=== PATIENT | female | born 1965 ===

== ENCOUNTER 2017-01-13 22:06 | Emergency (ER) | payer OTHER ==
[2017-01-13 22:18] VITALS: BP 116/77; PULSE 100; RESP 18; TEMP 98.2; O2SAT 100
[2017-01-13] MEDS ORDERED: CHLORPHENIRAMINE PO STA (22:32)
[2017-01-13] MEDS ORDERED: Albuterol 0.083% Inhal Sol (2.5 mg/3 mL) UD IH STA (22:32)
[2017-01-13] MEDS ORDERED: HYDROCODONE PO STA (22:32)
[2017-01-13] MEDS ORDERED: Promethazine/Cod 6.25mg-10mg/5ml Syr UD PO STA (22:37)
[2017-01-13] MEDS ORDERED: Promethazine/Cod 6.25mg-10mg/5ml Syr UD ONE (22:41)
[2017-01-13] MEDS ORDERED: Albuterol 0.083% Inhal Sol (2.5 mg/3 mL) UD ONE (22:42)
--- NOTE | 2017-01-13 23:17 | C.PDOC ---
History Of Present Illness Patient is a 51 year old female who presents to the ER with a complaint of a persistent cough for the past 7 days, associated with a subjective fever. Pt notes that she feels "lots of phlegm". (+) nasal congestion. Pt taking allergy medication without relief. No chest pain. Patient denies any vomiting or congestion. Pt evaluated by clinic today, not given any medication. 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 denies: Nasal Congestion, Vomiting Past Medical History Reviewed: Historical Data, Nursing Documentation, Vital Signs Vital Signs: Last Vital Signs Temp 98.2 F 01/13/17 22:15 Pulse 100 H 01/13/17 22:15 Resp 18 01/13/17 22:15 BP 116/77 01/13/17 22:15 Pulse Ox 100 01/13/17 23:58 - Medical History PMH: No Chronic Diseases Surgical History: Appendectomy Family History: States: Unknown Family Hx - Social History Hx Tobacco Use: No Hx Alcohol Use: No Hx Substance Use: No - Immunization History Hx Tetanus Toxoid Vaccination: No Hx Influenza Vaccination: No Hx Pneumococcal Vaccination: No Review Of Systems Constitutional: Positive for: Fever (Subjective) ENT: Negative for: Other (Congestion) Respiratory: Positive for: Cough Gastrointestinal: Negative for: Vomiting Physical Exam - Physical Exam Appears: Well, Non-toxic, No Acute Distress, Other (Persistent cough) Skin: Normal Color, Warm, Dry Head: Atraumatic, Normacephalic Eye(s): bilateral: Normal Inspection, EOMI Ear(s): Bilateral: Normal Nose: Normal Oral Mucosa: Moist Throat: Normal, No Erythema, No Exudate Neck: Normal ROM, Supple Lymphatic: Normal Exam Chest: Symmetrical Cardiovascular: Rhythm Regular Respiratory: Normal Breath Sounds, No Accessory Muscle Use, Other (Speaking in full sentences) Neurological/Psych: Oriented x3, Normal Speech, Other (No focal deficits) ED Course And Treatment O2 Sat by Pulse Oximetry: 100 (Room air) Pulse Ox Interpretation: Normal - Radiology CXR: Interpreted by Me, Viewed By Me CXR Interpretation: Yes: No Acute Disease Progress Note: Nebulizer treatment administered and CXR ordered. On reassessment, patient is resting comfortably, and is in no acute distress. Cough has improved. No SOB. Patient was instructed to follow up with physician/ clinic in 1-2 days for further evaluation. Will be given Rx for inhaler and cough medicine. Disposition - Disposition Disposition: HOME/ ROUTINE Disposition Time: 23:15 Condition: STABLE Additional Instructions: Vaya a gardner mdico o la clnica en 1-3 weaver sin falta, para mas evaluacin. [place] los medicamentos tacho indicado. Volver a la denis de emergencia en cualquier momento si los sntomas persisten o empeoran. Prescriptions: Albuterol HFA [Ventolin HFA 90 mcg/actuation (8 g)] 2 puff IH [id number] #1 puff Benzonatate [Tessalon Perle] 100 mg PO TID PRN #15 capsule PRN Reason: Cough Fluticasone Nasal [Flonase] 1 actuation NS DAILY #1 spr Instructions: Acute Bronchitis (ED) Forms: Work Excuse Print Language: HUNGARIAN - Clinical Impression Clinical Impression: Bronchitis, Upper respiratory infection - Scribe Statement The provider has reviewed the documentation as recorded by the Scribe Ron Lares All medical record entries made by the Scribe were at my direction and personally dictated by me. I have reviewed the chart and agree that the record accurately reflects my personal performance of the history, physical exam, medical decision making, and the department course for this patient. I have also personally directed, reviewed, and agree with the discharge instructions and disposition.
--- NOTE | 2017-01-14 08:37 | RAD ---
HISTORY: uri COMPARISON: 10/14/2016 TECHNIQUE: Chest PA and lateral FINDINGS: LUNGS: No active pulmonary disease. PLEURA: No significant pleural effusion identified. No pneumothorax apparent. CARDIOVASCULAR: Normal. OSSEOUS STRUCTURES: No significant abnormalities. VISUALIZED UPPER ABDOMEN: Normal. OTHER FINDINGS: None. IMPRESSION: No active disease.
== END 2017-01-13 23:25 | disposition home or self-care (01) ==
LOC: C.ER 22:06
DX: J06.9 Acute upper respiratory infection, unspecified (principal); J40 Bronchitis, not specified as acute or chronic

== ENCOUNTER → 2017-03-19 18:16 | Emergency (ER) | payer SELFPAY | END | disposition left against medical advice (07) | LOC: C.ER 18:16 | DX: R11.0 Nausea (principal); Z02.9 Encounter for administrative examinations, unspecified ==

== ENCOUNTER 2017-04-13 13:20 | Emergency (ER) | payer SELFPAY ==
[2017-04-13 13:28] VITALS: RESP 18
[2017-04-13] MEDS ORDERED: Sodium Chloride 0.9% 1,000 ML IV ONE (13:49)
--- NOTE | 2017-04-13 13:51 | C.PDOC ---
History Of Present Illness 51 year old female who presents to the ER with a complaint of headache, dizziness, and palpitations that began today, Denies chest pain, SOB, nausea, or vomiting. Time Seen by Provider: 04/13/17 13:42 Chief Complaint (Nursing): Palpitations History Per: Patient History/Exam Limitations: no limitations Onset/Duration Of Symptoms: Hrs Current Symptoms Are (Timing): Still Present Associated Symptoms: Headache. denies: Chest Pain, Dyspnea Quality Of Symptoms: Rapid Heart Rate Exacerbating Factor(s): Pos: None Recent travel outside of the [place]: No Past Medical History Reviewed: Historical Data, Nursing Documentation, Vital Signs Vital Signs: Last Vital Signs Temp 97.9 F 04/13/17 15:59 Pulse 58 L 04/13/17 15:59 Resp 18 04/13/17 15:59 BP 122/82 04/13/17 15:59 Pulse Ox 100 04/13/17 15:59 - Medical History PMH: No Chronic Diseases Surgical History: Appendectomy Family History: States: Unknown Family Hx - Social History Hx Tobacco Use: No Hx Alcohol Use: No Hx Substance Use: No - Immunization History Hx Tetanus Toxoid Vaccination: No Hx Influenza Vaccination: No Hx Pneumococcal Vaccination: No Review Of Systems Cardiovascular: Positive for: Palpitations. Negative for: Chest Pain Respiratory: Negative for: Shortness of Breath Gastrointestinal: Negative for: Nausea, Vomiting Neurological: Positive for: Headache, Dizziness Physical Exam - Physical Exam Appears: Non-toxic Skin: Normal Color, Warm, Dry Head: Atraumatic, Normacephalic Oral Mucosa: Moist Chest: Symmetrical, No Tenderness Cardiovascular: Rhythm Regular, No Murmur Respiratory: Normal Breath Sounds, No Rales, No Rhonchi, No Wheezing Gastrointestinal/Abdominal: Soft, No Tenderness Neurological/Psych: Oriented x3, Normal Speech, Normal Cognition ED Course And Treatment - Laboratory Results Result Diagrams: 04/13/17 14:35 04/13/17 14:35 Lab Interpretation: Normal ECG: Interpreted By Me ECG Rhythm: Sinus Rhythm ECG Interpretation: No Acute Changes Rate From EC O2 Sat by Pulse Oximetry: 99 (Room air) Pulse Ox Interpretation: Normal Progress Note: EKG, blood work, and urinalysis ordered. Reglan and IV fluids administered. Treated with toeadol 30 mg IV. On re-evaluation neuro intact, ambulating with steady gait Reassessment Condition: Improved Disposition Counseled Patient/Family Regarding: Studies Performed, Diagnosis, Need For Followup, Rx Given - Disposition Referrals: [facility] [Outside] [facility] [Outside] Disposition: HOME/ ROUTINE Disposition Time: 15:45 Condition: IMPROVED Additional Instructions: Follow up with clinic for further evaluation Instructions: Palpitations (ED), Vertigo (ED) Forms: [employer] (Yoruba) Print Language: HEBREW - POA Present On Arrival: None - Clinical Impression Clinical Impression: Palpitations, Vertigo - Scribe Statement The provider has reviewed the documentation as recorded by the Scribe Ron Lares All medical record entries made by the Barryibtamara were at my direction and personally dictated by me. I have reviewed the chart and agree that the record accurately reflects my personal performance of the history, physical exam, medical decision making, and the department course for this patient. I have also personally directed, reviewed, and agree with the discharge instructions and disposition.
[2017-04-13] MEDS ORDERED: Sodium Chloride 0.9% 1,000 ML ONE (14:22)
[2017-04-13 14:36] LABS: RBC URINE < 1 /hpf (0-3); URINE BILIRUBIN NEGATIVE (NEGATIVE); URINE BLOOD NEGATIVE (NEGATIVE); URINE COLOR Yellow (YELLOW); URINE GLUCOSE (UA) NORMAL (Normal); URINE KETONE NEGATIVE (NEGATIVE); URINE LEUKOCYTE ESTERASE NEG Leu/uL (Negative); URINE PROTEIN NEGATIVE (NEGATIVE); URINE UROBILINOGEN NORMAL mg/dL (0.2-1.0); WBC URINE < 1 /hpf (0-5)
[2017-04-13 14:46] LABS: BASO % 0.6 % (0.0-2.0); EOS % 0.8 % (0.0-4.0); HEMATOCRIT 34.5 % (34.0-47.0); LYMPH # 1.5 K/uL (1.0-4.3); LYMPH % 26.6 % (20.0-40.0); MEAN CORPUSCULAR HEMOGLOBIN 22.4 pg (27.0-31.0); MEAN CORPUSCULAR HGB CONC 31.7 g/dL (33.0-37.0); MEAN PLATELET VOLUME 7.2 fL (7.2-11.7); MONO # 0.3 K/uL (0.0-0.8); MONO % 6.3 % (0.0-10.0); RED CELL DISTRIBUTION WIDTH 21.7 % (11.5-14.5); WHITE BLOOD COUNT 5.5 K/uL (4.8-10.8)
[2017-04-13 14:48] LABS: MEAN CELL VOLUME 70.5 fL (81.0-99.0)
[2017-04-13 15:08] LABS: CHLORIDE 100 mmol/L (98-107)
[2017-04-13 15:09] LABS: POTASSIUM 4.1 mmol/L (3.6-5.2); SODIUM 140 mmol/L (132-148)
[2017-04-13 15:11] LABS: ALB/GLOB RATIO 1.1 (1.0-2.1); ALKALINE PHOSPHATASE 86 U/L (38-126); AST/SGOT 20 U/L (14-36); BILIRUBIN,TOTAL 0.4 mg/dL (0.2-1.3); BLOOD UREA NITROGEN 12 mg/dL (7-17); CARBON DIOXIDE 25 mmol/L (22-30); GFR AFRICAN-AMERICAN > 60; TOTAL PROTEIN 7.6 g/dL (6.3-8.3)
[2017-04-13 15:12] LABS: ALT/SGPT 24 U/L (9-52); CALCIUM 9.1 mg/dl (8.6-10.4); GLUCOSE,RANDOM 90 mg/dL (65-105)
[2017-04-13 15:59] VITALS: BP 122/82; PULSE 58; TEMP 97.9
[2017-04-13 16:14] VITALS: O2SAT 99
--- NOTE | 2017-04-16 07:12 | CARD ---
APPROVED REPORT EKG Measurement Heart [id number] <Conclusion> Normal sinus rhythm Minimal voltage criteria for LVH, may be normal variant Borderline ECG
== END 2017-04-13 16:25 | disposition home or self-care (01) ==
LOC: C.ER 13:20
DX: R00.2 Palpitations (principal); R42 Dizziness and giddiness
CPT/HCPCS: 80053; 81001; 83690; 85025; 96361; 96365; 96375; 99285; J1885; J2765; J7040

== ENCOUNTER 2018-10-02 12:28 | Emergency (ER) | payer MEDICAID, SELFPAY ==
[2018-10-02 12:36] VITALS: BMI 22.8
[2018-10-02 12:41] VITALS: RESP 18
[2018-10-02] MEDS ORDERED: Aluminum Hydroxide/Magnesium Hydroxide Susp (30 mL) PO STA (13:36)
[2018-10-02] MEDS ORDERED: Amoxicillin-Clav 875-125 mg Tab PO STA (13:36)
[2018-10-02] MEDS ORDERED: Aluminum Hydroxide/Magnesium Hydroxide Susp (30 mL) ONE (13:43)
[2018-10-02] MEDS ORDERED: Amoxicillin-Clav 875-125 mg Tab PO ONE (13:43)
--- NOTE | 2018-10-02 14:58 | C.PDOC ---
History Of Present Illness 53 year old female presents to the ED for evaluation of epigastric pain and burning sensation radiating to her throat which has occurred 4-5 times within this past month. Patient also reports intermittent headache over the past 5 months. Patient also complains of post-nasal drip. Patient denies fever, chills, and has not taken any medication for symptoms. Time Seen by Provider: 10/02/18 13:25 Chief Complaint (Nursing): Headache History Per: Patient History/Exam Limitations: no limitations Onset/Duration Of Symptoms: Days Current Symptoms Are (Timing): Still Present Quality: "Pain" Past Medical History Reviewed: Historical Data, Nursing Documentation, Vital Signs Vital Signs: Last Vital Signs Temp 98 F 10/02/18 12:37 Pulse 78 10/02/18 12:37 Resp 18 10/02/18 12:37 BP 117/83 10/02/18 12:37 Pulse Ox 99 10/02/18 12:37 - Medical History PMH: Anemia Surgical History: Appendectomy Family History: States: Unknown Family Hx - Social History Hx Tobacco Use: No Hx Alcohol Use: No Hx Substance Use: No - Immunization History Hx Tetanus Toxoid Vaccination: No Hx Influenza Vaccination: No Hx Pneumococcal Vaccination: No Review Of Systems Constitutional: Negative for: Fever, Chills Gastrointestinal: Positive for: Abdominal Pain (epigastric ) Neurological: Positive for: Headache Physical Exam - Physical Exam Appears: Non-toxic, No Acute Distress Skin: Normal Color, Warm, Dry Head: Tenderness (sinus ) Eye(s): bilateral: Normal Inspection Ear(s): Bilateral: Normal Nose: Normal, No Discharge Oral Mucosa: Moist Throat: Normal, No Erythema, No Exudate Neck: Supple Chest: Symmetrical, No Deformity, No Tenderness Cardiovascular: Rhythm Regular, No Murmur Respiratory: Normal Breath Sounds, No Rales, No Rhonchi, No Wheezing Extremity: Normal ROM, Capillary Refill (less than 2 seconds ) Neurological/Psych: Oriented x3, Normal Speech, Normal Cognition ED Course And Treatment O2 Sat by Pulse Oximetry: 99 (on RA ) Pulse Ox Interpretation: Normal Medical Decision Making Medical Decision Making: Progress: Tylenol PO, Maalox PO, Augmentin PO, Pepcid PO and Motrin PO given. Disposition Counseled Patient/Family Regarding: Diagnosis, Need For Followup, Rx Given - Disposition Referrals: [facility] [Outside] Disposition: HOME/ ROUTINE Disposition Time: 14:55 Condition: STABLE Prescriptions: Aluminum Hydroxide/Magnesium H [Maalox 30 ml] 30 ml PO BID #1 bottle Amoxicillin/Clavulanate [Augmentin 875 MG-125 MG] 1 tab PO BID #14 tab Famotidine [Pepcid] 20 mg PO BID #30 tab Ibuprofen [Motrin] 600 mg PO TID #20 tab Instructions: Sinusitis, Adult (DC), Gastritis (DC) Forms: Gen Discharge Inst Scottish, [employer] (Scottish), Work Excuse Print Language: MICRONESIAN - POA Present On Arrival: None - Clinical Impression Clinical Impression: Headache, Sinusitis - Scribe Statement The provider has reviewed the documentation as recorded by the Scribe (Ester Rodriguez) Provider Attestation: All medical record entries made by the Scribe were at my direction and personally dictated by me. I have reviewed the chart and agree that the record accurately reflects my personal performance of the history, physical exam, medical decision making, and the department course for this patient. I have also personally directed, reviewed, and agree with the discharge instructions and disposition.
[2018-10-02 15:05] VITALS: BP 135/96; PULSE 75; TEMP 98.1
[2018-10-02 16:22] VITALS: O2SAT 99
== END 2018-10-02 15:05 | disposition home or self-care (01) ==
LOC: C.ER 12:28
DX: J32.9 Chronic sinusitis, unspecified (principal); R51 Headache

== ENCOUNTER 2018-10-04 15:00 | Emergency (ER) | payer MEDICAID ==
[2018-10-04 15:00] VITALS: BMI 22.8
[2018-10-04 15:14] VITALS: RESP 18
--- NOTE | 2018-10-04 15:59 | C.PDOC ---
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 Patient states she was at work when the symptoms started and had difficulty breathing and felt like something was stuck in her throat. She denies any chest pain, chills, vomiting, fever, or other associated symptoms. Patient was seen here on 09/25/18 for post nasal drainage and reflux and was prescribed Tylenol, Augmentin, Maalox, Pepcid, and Motrin, but she states she developed itching after taking the medications. Time Seen by Provider: 10/04/18 15:29 Chief Complaint (Nursing): Shortness Of Breath History Per: Patient History/Exam Limitations: no limitations Onset/Duration Of Symptoms: Hrs Current Symptoms Are (Timing): Still Present Past Medical History Reviewed: Historical Data, Nursing Documentation, Vital Signs Vital Signs: Last Vital Signs Temp 98.4 F 10/04/18 15:06 Pulse 72 10/04/18 15:06 Resp 18 10/04/18 15:06 BP 150/93 H 10/04/18 15:06 Pulse Ox 99 10/04/18 15:06 - Medical History PMH: Anemia, Gastritis Surgical History: Appendectomy Family History: States: No Known Family Hx - Social History Hx Tobacco Use: No Hx Alcohol Use: No Hx Substance Use: No - Immunization History Hx Tetanus Toxoid Vaccination: No Hx Influenza Vaccination: No Hx Pneumococcal Vaccination: No Review Of Systems Except As Marked, All Systems Reviewed And Found Negative. Constitutional: Negative for: Fever, Chills ENT: Positive for: Nose Congestion, Other (sore throat) Cardiovascular: Negative for: Chest Pain, Palpitations Respiratory: Positive for: Cough Gastrointestinal: Negative for: Vomiting, Abdominal Pain Genitourinary: Negative for: Dysuria Skin: Negative for: Rash Physical Exam - Physical Exam Appears: Non-toxic, No Acute Distress Skin: Warm, Dry, No Rash Head: Atraumatic, Normacephalic Eye(s): bilateral: Normal Inspection Ear(s): Bilateral: Normal Nose: Other (Swelling of turbinates bilaterally, left greater than right) Oral Mucosa: Moist, Other ([place]) Throat: Normal, No Erythema, No Exudate, Other (uvula midline) Neck: Supple Cardiovascular: Rhythm Regular, No Murmur Respiratory: Normal Breath Sounds, No Rales, No Rhonchi, No Wheezing Gastrointestinal/Abdominal: Soft, No Tenderness Extremity: Bilateral: Atraumatic, Normal Color And Temperature, Normal ROM Neurological/Psych: Oriented x3, Normal Speech ED Course And Treatment O2 Sat by Pulse Oximetry: 99 (RA) Pulse Ox Interpretation: Normal Medical Decision Making Medical Decision Making: Plan: --Claritin PO Disposition Counseled Patient/Family Regarding: Diagnosis, Need For Followup - Disposition Referrals: [facility] [Outside] [facility] [Outside] Disposition: HOME/ ROUTINE Disposition Time: 16:34 Condition: STABLE Additional Instructions: KELECHI GONZALEZ, thank you for letting us take care of you today. Your provider was Amber aP MD and you were treated for ASTHMA. The emergency medical care you received today was directed at your acute symptoms. If you were prescribed any medication, please fill it and take as directed. It may take several days for your symptoms to resolve. Return to the Emergency Department if your symptoms worsen, do not improve, or if you have any other problems. Please contact your doctor or call one of the physicians/clinics you have been referred to that are listed on the Patient Visit Information form that is included in your discharge packet. Bring any paperwork you were given at discharge with you along with any medications you are taking to your follow up visit. Our treatment cannot replace ongoing medical care by a primary care provider outside of the emergency department. Thank you for allowing the [facility] team to be part of your care today. If you had an X-Ray or CT scan: A Radiologist will review the ED reading if any change in treatment is needed we will contact you. If you had a blood, urine, or wound culture: It will take several days for the results, if any change in treatment is needed we will contact you. If you had an STI test: It will take 48 hours for the results. Please call after 1 week if you have not heard back. Prescriptions: Loratadine/Pseudoephedrine [Claritin-D 24 Hour Tablet] 1 each PO DAILY #30 tab.er.24h Instructions: Acid Reflux (Gastroesophageal Reflux Disease), Adult (DC), Rhinosinusitis (ED) Forms: Gen Discharge Inst Amharic, [employer] (Amharic), Work Excuse Print Language: FAROESE - POA Present On Arrival: None - Clinical Impression Clinical Impression: Nasal congestion, Post-nasal drainage, Acid reflux - Scribe Statement The provider has reviewed the documentation as recorded by the Doris Mendoza Provider Attestation: All medical record entries made by the Barryibtamara were at my direction and personally dictated by me. I have reviewed the chart and agree that the record accurately reflects my personal performance of the history, physical exam, medical decision making, and the department course for this patient. I have also personally directed, reviewed, and agree with the discharge instructions and disposition.
[2018-10-04 16:43] VITALS: BP 129/84; PULSE 65; TEMP 97.9
[2018-10-08 05:49] VITALS: O2SAT 99
== END 2018-10-04 16:57 | disposition home or self-care (01) ==
LOC: C.ER 15:00
DX: R09.81 Nasal congestion (principal); R09.82 Postnasal drip; K21.9 Gastro-esophageal reflux disease without esophagitis

== ENCOUNTER 2018-11-09 16:50 | Emergency (ER) | payer MEDICAID ==
[2018-11-09 17:00] VITALS: BMI 25.3
[2018-11-09 17:25] VITALS: O2SAT 100
[2018-11-09 18:02] LABS: BASO % 0.4 % (0.0-2.0); EOS % 0.3 % (0.0-4.0); LYMPH # 1.2 K/uL (1.0-4.3); MEAN CORPUSCULAR HEMOGLOBIN 28.3 pg (27.0-31.0); MEAN CORPUSCULAR HGB CONC 32.8 g/dL (33.0-37.0); MONO # 0.4 K/uL (0.0-0.8); MONO % 4.9 % (0.0-10.0); NEUT % 80.4 % (50.0-75.0); NRBC % 0.1 % (0.0-2.0); RBC 4.94 Mil/uL (3.80-5.20); RED CELL DISTRIBUTION WIDTH 13.6 % (11.5-14.5); WHITE BLOOD COUNT 8.7 K/uL (4.8-10.8)
[2018-11-09 18:03] LABS: MEAN CELL VOLUME 86.3 fL (81.0-99.0)
[2018-11-09 18:08] LABS: ALB/GLOB RATIO 1.3 (1.0-2.1); ALBUMIN 4.5 g/dL (3.5-5.0); ALT/SGPT 15 U/L (9-52); AST/SGOT 29 U/L (14-36); BLOOD UREA NITROGEN 15 mg/dL (7-17); CALCIUM 9.4 mg/dl (8.6-10.4); GFR NON-AFRICAN AMERICAN > 60
[2018-11-09] MEDS ORDERED: DiphenhydrAMINE 50 mg/ml Inj IVP STA (18:10)
[2018-11-09] MEDS ORDERED: MethylPREDNISolone 40 mg Vial IVP STA (18:11)
[2018-11-09] MEDS ORDERED: Sodium Chloride 0.9% 1,000 ML IV ONE (18:12)
[2018-11-09 18:22] LABS: B-TYPE NATRIURETIC PEPTIDE 42.6 pg/mL (0-900)
--- NOTE | 2018-11-09 18:26 | C.PDOC ---
History Of Present Illness 53 y/o female presents to the ED for evaluation of chest pain which began at around 1500 today. Patient states her pain is associated with throat closing sensation, and facial redness. Patient states she was recently diagnosed with H. Pylori and has been taking antibiotics for the past 4-5 days. Patient took eight tablets of antibiotics earlier today. She denies nausea, vomiting and abdominal pain at this time. <Judi Welsh - Last Filed: 11/09/18 19:03> History Per: Patient History/Exam Limitations: no limitations Onset/Duration Of Symptoms: Hrs Current Symptoms Are (Timing): Still Present Quality: "Pain" <Judi Welsh - Last Filed: 11/09/18 19:03> <Jean-Pierre Richardson - Last Filed: 11/09/18 19:44> Time Seen by Provider: 11/09/18 17:40 Chief Complaint (Nursing): Chest Pain Past Medical History Reviewed: Historical Data, Nursing Documentation, Vital Signs Vital Signs: Last Vital Signs Temp 97.8 F 11/09/18 17:17 Pulse 107 H 11/09/18 17:17 Resp 20 11/09/18 17:17 BP 148/105 H 11/09/18 17:17 Pulse Ox 100 11/09/18 17:17 - Medical History PMH: Anemia, Gastritis, Hypercholesterolemia Surgical History: Appendectomy Family History: States: Unknown Family Hx - Social History Hx Tobacco Use: No Hx Alcohol Use: No Hx Substance Use: No - Immunization History Hx Tetanus Toxoid Vaccination: No Hx Influenza Vaccination: No Hx Pneumococcal Vaccination: No <Judi Welsh - Last Filed: 11/09/18 19:03> Vital Signs: Last Vital Signs Temp 97.8 F 11/09/18 17:17 Pulse 107 H 11/09/18 17:17 Resp 20 11/09/18 17:17 BP 148/105 H 11/09/18 17:17 Pulse Ox 100 11/09/18 19:04 <Jean-Pierre Richardson - Last Filed: 11/09/18 19:44> Review Of Systems ENT: Positive for: Other (throat tightness ) Cardiovascular: Positive for: Chest Pain Gastrointestinal: Negative for: Nausea, Vomiting Skin: Positive for: Other (facial redness ) <Judi Welsh - Last Filed: 11/09/18 19:03> Physical Exam - Physical Exam Appears: Non-toxic, No Acute Distress Skin: Normal Color, Warm, Dry Head: Atraumatic, Normacephalic Eye(s): bilateral: Normal Inspection Oral Mucosa: Moist Throat: Normal, No Erythema, No Exudate Neck: Supple Chest: Symmetrical, No Deformity, No Tenderness Cardiovascular: Rhythm Regular, No Murmur Respiratory: Normal Breath Sounds, No Rales, No Rhonchi, No Wheezing Extremity: Normal ROM, Capillary Refill (less than 2 seconds ) Neurological/Psych: Oriented x3, Normal Speech, Normal Cognition <BlaiseJudi Reji - Last Filed: 11/09/18 19:03> ED Course And Treatment - Laboratory Results Result Diagrams: 11/09/18 17:51 11/09/18 17:51 Lab Results: Troponin I < 0.0120 ng/mL (0.00-0.120) 11/09/18 17:51 NT-Pro-B Natriuret Pep 42.6 pg/mL (0-900) 11/09/18 17:51 Total Bilirubin 0.5 mg/dL (0.2-1.3) 11/09/18 17:51 AST 29 U/L (14-36) 11/09/18 17:51 ALT 15 U/L (9-52) 11/09/18 17:51 Alkaline Phosphatase 111 U/L (38-126) 11/09/18 17:51 Total Protein 8.2 g/dL (6.3-8.3) 11/09/18 17:51 Albumin 4.5 g/dL (3.5-5.0) 11/09/18 17:51 Globulin 3.6 gm/dL (2.2-3.9) 11/09/18 17:51 Albumin/Globulin Ratio 1.3 (1.0-2.1) 11/09/18 17:51 ECG: Interpreted By Me, Viewed By Me ECG Rhythm: Sinus Tachycardia Rate From EC O2 Sat by Pulse Oximetry: 100 (on RA) Pulse Ox Interpretation: Normal <BlaiseJudi C - Last Filed: 11/09/18 19:03> - Laboratory Results Result Diagrams: 11/09/18 17:51 11/09/18 17:51 Lab Results: PT 11.9 SECONDS (9.7-12.2) 11/09/18 18:49 INR 1.1 11/09/18 18:49 APTT 35 SECONDS (21-34) H 11/09/18 18:49 Troponin I < 0.0120 ng/mL (0.00-0.120) 11/09/18 17:51 NT-Pro-B Natriuret Pep 42.6 pg/mL (0-900) 11/09/18 17:51 Total Bilirubin 0.5 mg/dL (0.2-1.3) 11/09/18 17:51 AST 29 U/L (14-36) 11/09/18 17:51 ALT 15 U/L (9-52) 11/09/18 17:51 Alkaline Phosphatase 111 U/L (38-126) 11/09/18 17:51 Total Protein 8.2 g/dL (6.3-8.3) 11/09/18 17:51 Albumin 4.5 g/dL (3.5-5.0) 11/09/18 17:51 Globulin 3.6 gm/dL (2.2-3.9) 11/09/18 17:51 Albumin/Globulin Ratio 1.3 (1.0-2.1) 11/09/18 17:51 Pulse Ox Interpretation: Normal Reevaluation Time: 19:42 Reassessment Condition: Improved <Jean-Pierre Richardson - Last Filed: 11/09/18 19:44> Medical Decision Making Medical Decision Making: Progress: Bloodwork, CXR, EKG ordered and reviewed. Benadryl IVP, Pepcid IVP, Solu-Mdrol IVP and IV Fluids given. <Judi Welsh - Last Filed: 11/09/18 19:03> Disposition - Disposition Disposition Time: 19:03 <Judi Welsh - Last Filed: 11/09/18 19:03> Counseled Patient/Family Regarding: Studies Performed, Diagnosis, Need For Followup <Jean-Pierre Richardson - Last Filed: 11/09/18 19:44> - Disposition Referrals: [facility] [Outside] [facility] [Outside] Condition: STABLE Additional Instructions: Por favor regrese si los sntomas recurren. Instructions: Chest Pain (DC) Forms: [employer] ([place] Islander) Print Language: SYRIAC - Clinical Impression Clinical Impression: Chest discomfort - PA / MOUNTER SOUSAPHONES / Resident Statement MD/DO has reviewed & agrees with the documentation as recorded. - Scribe Statement The provider has reviewed the documentation as recorded by the Scribe (Ester Rodriguez) All medical record entries made by the Scribe were at my direction and personally dictated by me. I have reviewed the chart and agree that the record accurately reflects my personal performance of the history, physical exam, medical decision making, and the department course for this patient. I have also personally directed, reviewed, and agree with the discharge instructions and d isposition. <Judi Welsh C - Last Filed: 11/09/18 19:03> Physician Patient Turnover Patient Signed Over To: Jean-Pierre Richardson Handoff Comments: pending labs and re-evaluation <Judi Welsh C - Last Filed: 11/09/18 19:03>
[2018-11-09] MEDS ORDERED: Sodium Chloride 0.9% 1,000 ML ONE (18:27)
[2018-11-09] MEDS ORDERED: MethylPREDNISolone 40 mg Vial ONE (18:27)
[2018-11-09] MEDS ORDERED: DiphenhydrAMINE 50 mg/ml Inj ONE (18:27)
[2018-11-09 19:00] LABS: INR 1.1; PROTHROMBIN TIME 11.9 SECONDS (9.7-12.2)
--- NOTE | 2018-11-09 19:07 | RAD ---
Date of service: 11/09/2018 PROCEDURE: CHEST RADIOGRAPH, 1 VIEW HISTORY: chest pain COMPARISON: 01/13/2017 FINDINGS: LUNGS: Clear. PLEURA: No pneumothorax or pleural fluid seen. CARDIOVASCULAR: No aortic atherosclerotic calcification present. No radiographic findings to suggest acute or significant cardiovascular disease. OSSEOUS STRUCTURES: No significant abnormalities. VISUALIZED UPPER ABDOMEN: Normal. OTHER FINDINGS: None. IMPRESSION: No active disease. No acute/significant interval changes.
[2018-11-09 19:47] VITALS: BP 141/86; PULSE 80; RESP 16; TEMP 98
--- NOTE | 2018-11-10 16:50 | CARD ---
APPROVED REPORT Date of service: 11/09/2018 EKG Measurement Heart [id number] <Conclusion> Sinus tachycardia Minimal voltage criteria for LVH, may be normal variant Borderline ECG
== END 2018-11-09 19:56 | disposition home or self-care (01) ==
LOC: C.ER 16:50
DX: R07.89 Other chest pain (principal)
CPT/HCPCS: 71045; 80053; 82948; 83880; 84484; 85025; 85610; 85730; 93005; 96361; 96374; 96375; 99285; J1200; J2920; J7030

== ENCOUNTER 2018-11-10 20:32 | Emergency (ER) | payer MEDICAID ==
[2018-11-10 20:49] VITALS: BMI 27.6
--- NOTE | 2018-11-10 20:59 | C.PDOC ---
History Of Present Illness 53 year old female presents to the ED c/o SOB, throat discomfort and generalized not feeling well sensation. Patient is unable to pinpoint any actual symptom. Patient was seen in the ED yesterday for similar complains including some throat tightness after she started taking triple antibiotics for h pylori. Patient denies fever, chills, headache, nausea, vomit, diarrhea, rash, recent travel, sick contacts. Time Seen by Provider: 11/10/18 20:59 Chief Complaint (Nursing): Chest Pain History Per: Patient History/Exam Limitations: no limitations Onset/Duration Of Symptoms: Days Current Symptoms Are (Timing): Still Present Quality: Tightness Recent travel outside of the [place]: No Additional History Per: Patient Past Medical History Reviewed: Historical Data, Nursing Documentation, Vital Signs Vital Signs: Last Vital Signs Temp 98.2 F 11/10/18 20:49 Pulse 86 11/10/18 20:49 Resp 19 11/10/18 20:49 BP 153/96 H 11/10/18 20:49 Pulse Ox 98 11/10/18 20:49 - Medical History PMH: Anemia, Gastritis, Hypercholesterolemia Surgical History: Appendectomy Family History: States: Unknown Family Hx - Social History Hx Tobacco Use: No Hx Alcohol Use: No Hx Substance Use: No - Immunization History Hx Tetanus Toxoid Vaccination: No Hx Influenza Vaccination: No Hx Pneumococcal Vaccination: No Review Of Systems Constitutional: Positive for: Malaise. Negative for: Fever, Chills ENT: Positive for: Throat Pain. Negative for: Nose Discharge, Nose Congestion Cardiovascular: Negative for: Chest Pain Respiratory: Positive for: Shortness of Breath. Negative for: Cough Gastrointestinal: Negative for: Nausea, Vomiting, Abdominal Pain Skin: Negative for: Rash Neurological: Negative for: Weakness, Numbness, Headache, Dizziness Physical Exam - Physical Exam Appears: Non-toxic, No Acute Distress Skin: Warm, Dry Head: Normacephalic Eye(s): bilateral: Normal Inspection Ear(s): Bilateral: Normal Oral Mucosa: Moist Tongue: Normal Appearing Lips: Normal Appearing Throat: No Erythema, No Exudate, Other (? mild erythematous uvula) Neck: Supple Chest: Symmetrical Cardiovascular: Rhythm Regular Respiratory: No Rales, No Rhonchi, No Wheezing Gastrointestinal/Abdominal: Soft, No Tenderness, No Guarding, No Rebound Extremity: Bilateral: Atraumatic, Normal Color And Temperature, Normal ROM Neurological/Psych: Oriented x3, Normal Speech, Normal Cognition Gait: Steady ED Course And Treatment - Laboratory Results Result Diagrams: 11/10/18 21:22 11/10/18 21:22 ECG: Interpreted By Me, Viewed By Me ECG Rhythm: Sinus Rhythm (87), Nonspecific Changes O2 Sat by Pulse Oximetry: 98 (ON RA) Pulse Ox Interpretation: Normal - Radiology CXR: Interpreted by Me, Viewed By Me - CT Scan/US CT head Other Rad Studies (CT/US): Read By Radiologist, Radiology Report Reviewed CT/US Interpretation: EXAM: CT Head without Intravenous Contrast. CLINICAL HISTORY: Headache. TECHNIQUE: Axial computed tomography images of the head/brain without intravenous contrast. 0.00 mGy-cm. COMPARISON: None provided. FINDINGS: BRAIN. No acute intraparenchymal hemorrhage. No mass lesion. No CT evidence for acute territorial infarct. No midline shift or extra- axial collections. VENTRICLES: No hydrocephalus. ORBITS: The orbits are unremarkable. SINUSES AND MASTOIDS: The paranasal sinuses and mastoid air cells are clear. BONES: No fracture. SOFT TISSUES: Unremarkable. IMPRESSION: No acute intracranial abnormality. . Electronically signed on Nov 10, 2018 10:56:18 PM EST by: Patrick Garcia M.D., KENJI Certified By ABR & CBCCT. Fellowship Trained MRI and CT Specialist CT chest Other Rad Studies (CT/US): Read By Radiologist, Radiology Report Reviewed CT/US Interpretation: EXAM: CTA Chest with Intravenous Contrast for Pulmonary Embolism. CLINICAL HISTORY: Chest pain. r/o pe. TECHNIQUE: Axial CTA images of the chest with intravenous contrast using a pulmonary embolism protocol. Reconstructed images were created and reviewed. 0.00 mGy-cm. CONTRAST: With; 100MLS VISI 320 was administered without incident. COMPARISON: None provided. FINDINGS: PULMONARY ARTERIES. No evidence of central or segmental pulmonary embolism is seen. AORTA. There is no evidence for aneurysm or dissection of the thoracic aorta. Minor atheromatous plaquing is seen within the aortic arch. LUNGS. The lungs appear clear. PLEURAL SPACES. No pneumothorax evident. No pleural effusions. HEART. Heart size is within normal limits. No pericardial effusion. LYMPH NODES. No lymphadenopathy is evident. BONES. No focal osseous abnormality or acute fracture. UPPER ABDOMEN. Images of the upper abdomen demonstrate reflux esophagitis at the esophagogastric junction. IMPRESSION: 1. Evidence of reflux esophagitis. 2. Minor atheromatous plaquing is noted within the aortic arch. 3. Otherwise, unremarkable pulmonary embolism protocol CTA of the chest. . Electronically signed on Nov 10, 2018 11:08:28 PM EST by: Patrick Garcia M.D., KENJI Certified By ABR & CBCCT. Fellowship Trained MRI and CT Specialist CT neck Other Rad Studies (CT/US): Read By Radiologist, Radiology Report Reviewed CT/US Interpretation: EXAM: CT Neck without Intravenous Contrast. CLINICAL HISTORY: THROAT PAIN. TECHNIQUE: Axial computed tomography images of the neck without intravenous contrast. Sagittal and coronal reformatted images were generated. 0.00 mGy-cm. CONTRAST: Without. COMPARISON: None provided. FINDINGS: PHARYNX: There is subtle focal mucosal edematous thickening of the uvula suggestive of uvulitis. This image finding is demonstrated in the axial series 2; specifically image #24. Otherwise, unremarkable appearance of the nasopharynx, oropharynx and hypopharynx. No pharyngeal mucosal based mass lesions. LARYNX: The larynx is unremarkable. The epiglottis appears normal. RETROPHARYNGEAL SPACE: No retropharyngeal soft tissue swelling or gas. SALIVARY GLANDS: No salivary gland abnormality evident. Unremarkable appearance of the parotid, submandibular, and sublingual glands. LYMPH NODES: No significant lymphadenopathy. THYROID: Unremarkable appearance of the thyroid. No thyroid nodule seen. BONES: No aggressive appearing osseous lesion. No acute osseous abnormality. Mild degenerative arthritis is noted within the atlanto-dens interval. IMPRESSION: 1. Evidence of uvulitis as described above. 2. 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 . Electronically signed on Nov 10, 2018 11:24:07 PM EST by: Patrick Garcia M.D., KENJI Certified By ABR & CBCCT. Fellowship Trained MRI and CT Specialist Progress Note: Plan: - Labs. - VBG. - EKG Reevaluation Time: 23:31 Reassessment Condition: Improved Disposition Counseled Patient/Family Regarding: Studies Performed, Diagnosis, Need For Followup, Rx Given - Disposition Referrals: Kameron Nava MD [IM] - Disposition: HOME/ ROUTINE Disposition Time: 20:59 Condition: FAIR Additional Instructions: Por favor regrese si los sntomas recurren. Prescriptions: Pantoprazole Sodium [Protonix] 40 mg PO DAILY #15 ect Prednisone [Deltasone] 20 mg PO DAILY #5 tablet Instructions: Acid Reflux (Gastroesophageal Reflux Disease), Adult (DC) Forms: [employer] Connect (Tajik) Print Language: SWEDISH - Clinical Impression Clinical Impression: GERD (gastroesophageal reflux disease), Esophagitis, Uvulitis - Scribe Statement The provider has reviewed the documentation as recorded by the Scribtamara Peraza All medical record entries made by the Barryibtamara were at my direction and personally dictated by me. I have reviewed the chart and agree that the record accurately reflects my personal performance of the history, physical exam, medical decision making, and the department course for this patient. I have also personally directed, reviewed, and agree with the discharge instructions and disposition.
[2018-11-10 21:26] LABS: BASO % 0.2 % (0.0-2.0); HEMOGLOBIN 13.8 g/dL (11.0-16.0); LYMPH # 1.6 K/uL (1.0-4.3)
[2018-11-10 21:32] LABS: EOS % 0.2 % (0.0-4.0); LYMPH % 10.9 % (20.0-40.0); MEAN CELL VOLUME 86.1 fL (81.0-99.0); MEAN CORPUSCULAR HEMOGLOBIN 28.4 pg (27.0-31.0); MEAN PLATELET VOLUME 8.4 fL (7.2-11.7); MONO # 0.8 K/uL (0.0-0.8); MONO % 5.3 % (0.0-10.0); NEUT # 11.9 K/uL (1.8-7.0); NEUT % 83.4 % (50.0-75.0); NRBC % 0.1 % (0.0-2.0); RBC 4.84 Mil/uL (3.80-5.20); RED CELL DISTRIBUTION WIDTH 13.9 % (11.5-14.5)
[2018-11-10 21:34] LABS: WHITE BLOOD COUNT 14.4 K/uL (4.8-10.8)
[2018-11-10 21:42] LABS: ALB/GLOB RATIO 1.3 (1.0-2.1); ALBUMIN 4.8 g/dL (3.5-5.0); ALT/SGPT 11 U/L (9-52); AST/SGOT 40 U/L (14-36); BLOOD UREA NITROGEN 17 mg/dL (7-17); CALCIUM 9.9 mg/dl (8.6-10.4); GFR NON-AFRICAN AMERICAN > 60
[2018-11-10 21:43] LABS: PROTHROMBIN TIME 11.2 SECONDS (9.7-12.2)
[2018-11-10 21:51] LABS: B-TYPE NATRIURETIC PEPTIDE 220 pg/mL (0-900)
[2018-11-10 22:07] LABS: VENOUS BLOOD GAS BASE EXCESS -2.1 mmol/L (0.0-2.0); VENOUS BLOOD GAS PCO2 29 mmHg (40-60); VENOUS BLOOD GAS PO2 100 mm/Hg (30-55); VENOUS BLOOD PH 7.46 (7.32-7.43)
[2018-11-10 23:22] VITALS: BP 146/92; PULSE 65; RESP 16
[2018-11-10 23:34] VITALS: O2SAT 98
[2018-11-10 23:55] VITALS: TEMP 98.4
--- NOTE | 2018-11-11 11:10 | CT ---
Date of service: 11/10/2018 PROCEDURE: CT HEAD WITHOUT CONTRAST. HISTORY: headache COMPARISON: 07/09/2016 TECHNIQUE: Axial computed tomography images were obtained through the head/brain without intravenous contrast. Radiation dose: Total exam DLP = 1057.66 mGy-cm. This CT exam was performed using one or more of the following dose reduction techniques: Automated exposure control, adjustment of the mA and/or kV according to patient size, and/or use of iterative reconstruction technique. FINDINGS: HEMORRHAGE: No intracranial hemorrhage. BRAIN: No mass effect or edema. No atrophy or chronic microvascular ischemic changes. VENTRICLES: Unremarkable. No hydrocephalus. CALVARIUM: Unremarkable. PARANASAL SINUSES: Unremarkable as visualized. No significant inflammatory changes. MASTOID AIR CELLS: Unremarkable as visualized. No inflammatory changes. OTHER FINDINGS: None. IMPRESSION: Normal CT of the Head. No intracranial mass, hemorrhage or evidence of acute infarct. The preliminary findings for this examination were reported by [facility] at 10:56 p.m. on 11/10/2018. There is concurrence of this report with the preliminary findings.
--- NOTE | 2018-11-11 16:11 | CT ---
Date of service: 11/10/2018 PROCEDURE: CT Chest with contrast (Pulmonary Angiogram) HISTORY: elevated d-dimer COMPARISON: None available. TECHNIQUE: Axial computed tomography images were obtained of the chest in the pulmonary arterial phase of enhancement. Coronal and sagittal reformatted images were created and reviewed. Intravenous contrast dose: 100 mL Visipaque 320 Radiation dose: Total exam DLP = 398.82 mGy-cm. This CT exam was performed using one or more of the following dose reduction techniques: Automated exposure control, adjustment of the mA and/or kV according to patient size, and/or use of iterative reconstruction technique. FINDINGS: PULMONARY ARTERIES: Unremarkable. No pulmonary embolism. AORTA: No acute findings. No thoracic aortic aneurysm. There is atherosclerotic calcification of the thoracic aorta. LUNGS: Unremarkable. No nodule, mass or pulmonary consolidation. PLEURAL SPACES: Unremarkable. No effusion or pneumothorax. HEART: Unremarkable. No cardiomegaly. No significant pericardial effusion. LYMPH NODES: No lymphadenopathy. BONES, CHEST WALL: Unremarkable. No fracture or destructive lesion OTHER FINDINGS: Small hiatal hernia. IMPRESSION: No evidence of pulmonary embolism. No pulmonary infiltrate or pleural effusion. Incidental small hiatal hernia. The preliminary findings for this examination were reported by [facility] at 11:08 p.m. on 11/10/2018. There is concurrence of this report with the preliminary findings.
--- NOTE | 2018-11-11 16:27 | CT ---
Date of service: 11/10/2018 PROCEDURE: CT NECK WITH CONTRAST HISTORY: throat pain COMPARISON: None available. TECHNIQUE: CT of the neck with intravenous contrast. Coronal and sagittal reformats generated. Intravenous contrast dose: 100 mL Visipaque 320 Radiation dose: Total exam DLP = 481.13 mGy-cm. This CT exam was performed using one or more of the following dose reduction techniques: Automated exposure control, adjustment of the mA and/or kV according to patient size, and/or use of iterative reconstruction technique. FINDINGS: NASOPHARYNX: Unremarkable. SUPRAHYOID NECK: Oropharynx is significant for central low attenuation within the uvula. There is no associated enhancement. This is unlikely to represent an acute inflammatory process. Nevertheless, consistent with nonspecific edema. The epiglottis and parapharyngeal spaces are unremarkable. INFRAHYOID NECK: , unremarkable larynx, hypopharynx, and supraglottic space. Vocal cords intact. MASS: None. GLANDS: Parotid and submandibular glands unremarkable. Heterogeneous thyroid gland. Possible nodules. Correlate with thyroid ultrasound examination. LYMPH NODES: Normal. No lymphadenopathy. CERVICAL SPINE: No fracture or focal lesion. VASCULAR STRUCTURES: Unremarkable. OTHER FINDINGS: None. IMPRESSION: Possible nonspecific edema of the uvula. No evidence of active inflammation. Heterogeneous thyroid gland. Possible multinodular gland. Correlate with thyroid ultrasound examination. The preliminary findings for this examination were reported by [facility] at 11:24 p.m. on 11/10/2018. There is discordance of this report with the preliminary findings. Possible multinodular thyroid was not described in the preliminary report of this examination.
== END 2018-11-10 23:55 | disposition home or self-care (01) ==
LOC: C.ER 20:32
DX: K21.0 Gastro-esophageal reflux disease with esophagitis (principal); K12.2 Cellulitis and abscess of mouth

== ENCOUNTER 2018-12-04 14:57 | Outpatient (CLI) | payer MEDICAID | END 2018-12-04 14:58 | disposition home or self-care (01) | LOC: C.MAMMO 14:57 | DX: Z12.31 Encounter for screening mammogram for malignant neoplasm of breast (principal) ==

== ENCOUNTER 2019-01-24 17:44 | Emergency (ER) | payer MEDICAID ==
[2019-01-24 17:45] VITALS: BMI 27.6
[2019-01-24] MEDS ORDERED: Sodium Chloride 0.9% 1,000 ML IV SCH (18:15)
--- NOTE | 2019-01-24 18:18 | C.PDOC ---
History Of Present Illness 53 y/o female presents to the ER complaining of headache, left sided facial tingling, and left sided weakness which began at 3 pm.Patient states that she has pins and needles sensation on her left side.Patient states that she feels " heaviness" in her arm and leg.She notes that she does not have any speech issues. Denies having visual changes, CP,SOB, nausea, and vomiting. Chief Complaint (Nursing): Dizziness/Lightheaded History Per: Patient History/Exam Limitations: no limitations Onset/Duration Of Symptoms: Hrs Current Symptoms Are (Timing): Still Present Severity: Moderate Past Medical History Reviewed: Historical Data, Nursing Documentation, Vital Signs Vital Signs: Last Vital Signs Temp 98.6 F 01/24/19 17:49 Pulse 88 01/24/19 17:49 Resp 20 01/24/19 17:49 BP 151/98 H 01/24/19 17:49 Pulse Ox 95 01/24/19 17:49 Primary Care Provider: Kameron Nava - Medical History PMH: Anemia, Gastritis, Hypercholesterolemia Surgical History: Appendectomy Family History: States: No Known Family Hx - Social History Hx Tobacco Use: No Hx Alcohol Use: No Hx Substance Use: No - Immunization History Hx Tetanus Toxoid Vaccination: No Hx Influenza Vaccination: No Hx Pneumococcal Vaccination: No Review Of Systems Except As Marked, All Systems Reviewed And Found Negative. Constitutional: Negative for: Fever, Chills Cardiovascular: Negative for: Chest Pain Respiratory: Negative for: Shortness of Breath Gastrointestinal: Negative for: Nausea, Vomiting, Abdominal Pain Neurological: Positive for: Weakness, Headache. Negative for: Dizziness Physical Exam - Physical Exam Appears: Non-toxic, No Acute Distress Skin: Normal Color, Warm, Dry Head: Atraumatic, Normacephalic, Other (no facial droop) Eye(s): bilateral: Normal Inspection Nose: Normal Oral Mucosa: Moist Neck: Supple Chest: Symmetrical Cardiovascular: Rhythm Regular Respiratory: Normal Breath Sounds, No Rales, No Rhonchi, No Wheezing Gastrointestinal/Abdominal: Normal Exam, Soft, No Tenderness, No Guarding, No Rebound Extremity: Normal ROM Neurological/Psych: Oriented x3, Normal Speech, Normal Motor, Normal Sensation ED Course And Treatment - Laboratory Results Result Diagrams: 01/24/19 18:22 01/24/19 18:22 O2 Sat by Pulse Oximetry: 95 (RA) Pulse Ox Interpretation: Normal rTPA Inclusion/Exclusion - Inclusion Criteria for Altepase All of the below criteria for inclusion were reviewed: Yes Patient is 18 years or Older: Yes The Clinical Diagnosis of Ischemic Stroke That is Causing a Potentially Disabling Neurological Deficit: Yes Time of Onset is Well Established to be Less Than 270 Minute Before Treatment Would Begin: Yes Risk/Benefit Discussed With Patient/Family Member Present: Yes Medical Decision Making Medical Decision Making: Plan: --Labs --ECG --CXR --CT-Head --IV Fluids Updates: 18:54 contacted. Pending call back. 19:00 Case discussed with . stated that patient is not in the window for TPA. advised CT-Head and neck and MRI-Brain. 19:20 Case d/w Dr. Oneil, hosptialist, accepts patient to her service. Disposition Counseled Patient/Family Regarding: Studies Performed, Diagnosis - Disposition Disposition: HOSPITALIZED Disposition Time: 19:24 Condition: STABLE Forms: [employer] (Nepali) - Clinical Impression Clinical Impression: Left-sided weakness, Facial paresthesia - Scribe Statement The provider has reviewed the documentation as recorded by the Scribe Saeid Holly Provider Attestation: All medical record entries made by the Scribe were at my direction and personally dictated by me. I have reviewed the chart and agree that the record accurately reflects my personal performance of the history, physical exam, medical decision making, and the department course for this patient. I have also personally directed, reviewed, and agree with the discharge instructions and disposition. NIHSS Stroke Scale - Date/Time Evaluation Performed Date Performed: 01/24/19 Time Performed: 18:35 When Was NIHSS Performed: Baseline - How Severe is the Stoke Level of Consciousness: 0=Alert LOC to Questions: 0=Both comments correct LOC to commands: 0=Obeys both correctly Best Gaze: 0=Normal Visual: 0=No visual loss Facial: 0=Normal Motor Arm - Left: 0=No drift Motor Arm - Right: 0=No drift Motor Leg - Left: 0=No drift Motor Leg - Right: 0=No drift Limb Ataxia: 0=Absent Sensory: 0=Normal Best Language: 0=No aphasia Dysarthia: 0=Normal articulation Extinction & Inattention (Neglect): 0=Normal, no object Score: 0
[2019-01-24 18:28] LABS: BASO % 0.1 % (0.0-2.0); EOS % 0.1 % (0.0-4.0); LYMPH # 1.1 K/uL (1.0-4.3); LYMPH % 10.3 % (20.0-40.0); MEAN CELL VOLUME 86.2 fL (81.0-99.0); MEAN CORPUSCULAR HEMOGLOBIN 29.5 pg (27.0-31.0); MEAN CORPUSCULAR HGB CONC 34.3 g/dL (33.0-37.0); MEAN PLATELET VOLUME 8.1 fL (7.2-11.7); MONO # 0.3 K/uL (0.0-0.8); MONO % 2.9 % (0.0-10.0); NEUT # 9.2 K/uL (1.8-7.0); NEUT % 86.6 % (50.0-75.0); RBC 4.73 Mil/uL (3.80-5.20); RED CELL DISTRIBUTION WIDTH 13.8 % (11.5-14.5); WHITE BLOOD COUNT 10.6 K/uL (4.8-10.8)
[2019-01-24 18:36] LABS: PROTHROMBIN TIME 11.1 SECONDS (9.7-12.2)
--- NOTE | 2019-01-24 18:37 | CT ---
Date of service: 01/24/2019 PROCEDURE: CT HEAD WITHOUT CONTRAST. HISTORY: Code Stroke COMPARISON: Noncontrast head CT performed 11/10/18 TECHNIQUE: Axial computed tomography images were obtained through the head/brain without intravenous contrast. Radiation dose: Total exam DLP = 1043.61 mGy-cm. This CT exam was performed using one or more of the following dose reduction techniques: Automated exposure control, adjustment of the mA and/or kV according to patient size, and/or use of iterative reconstruction technique. FINDINGS: Mild streak artifact limits evaluation of the skull base. HEMORRHAGE: No intracranial hemorrhage. BRAIN: No mass effect or edema. The payton-white matter differentiation appears intact. Please note that MRI with diffusion imaging is more sensitive in the detection of acute ischemic event. VENTRICLES: No hydrocephalus. CALVARIUM: Unremarkable. PARANASAL SINUSES: Unremarkable as visualized. No significant inflammatory changes. MASTOID AIR CELLS: Unremarkable as visualized. No inflammatory changes. OTHER FINDINGS: None. IMPRESSION: No acute intracranial pathology identified. Findings discussed with Dr. Pa on 01/24/19 at 6:29 p.m.
[2019-01-24 18:39] LABS: ALB/GLOB RATIO 1.3 (1.0-2.1); ALBUMIN 4.7 g/dL (3.5-5.0); ALT/SGPT 26 U/L (9-52); AST/SGOT 27 U/L (14-36); BLOOD UREA NITROGEN 17 mg/dL (7-17); CALCIUM 9.8 mg/dl (8.6-10.4); GFR NON-AFRICAN AMERICAN > 60; HDL CHOLESTEROL 45 mg/dL (30-70)
--- NOTE | 2019-01-24 18:49 | RAD ---
Date of service: 01/24/2019 HISTORY: Code Stroke COMPARISON: 11/09/2018. FINDINGS: LUNGS: No active pulmonary disease. PLEURA: No significant pleural effusion identified, no pneumothorax apparent. CARDIOVASCULAR: No atherosclerotic calcification present Normal. OSSEOUS STRUCTURES: No significant abnormalities. VISUALIZED UPPER ABDOMEN: Normal. OTHER FINDINGS: None. IMPRESSION: No active disease. No significant interval change compared to the prior examination(s).
[2019-01-24 18:50] LABS: LDL CHOLESTEROL 123 mg/dL (0-129)
[2019-01-24] MEDS ORDERED: Sodium Chloride 0.9% 1,000 ML ONE (19:04)
[2019-01-24] MEDS ORDERED: Iodixanol 320 MG/ML 100 ML BOTTLE IV ONE (19:26)
--- NOTE | 2019-01-24 19:31 | CP.PCM.HP ---
<Marichuy Coronado - Last Filed: 01/24/19 21:18> History of Present Illness - History of Present Illness History of Present Illness: cc: redness to race, anxiety, tingling to left face, dry mouth Patient is a 53 year old female with pmhx of HLD and GERD who presented to ED with complaints of feeling red in her face, anxiety, and subsequent perioral numbness and tingling to left scalp and dry mouth. She reports she was sitting at work and suddenlt felt a wave of heat come over her and travel to her face. She then became anxious and experienced dry mouth and chloé-oral and left scalp tingling. Patient reports similar symptoms in the past requiring ED eval with no finding other than anxiety. She reports these episodes occurred after entering menopause 1.5 years ago. She follows with her PMD and is deciding to leave AMA to meet with him tomorrow. Currently patient feels well and denies further complaints of headache, decreased muscle strength, paresthesias, palpitations, chest pain or SOB. Benefits and risks of leaving AMA explained to patient with understanding. pmhx: HLD, GERD pshx: denies meds: atorvastatin, omeprazole allergies: amoxicillin, seasonal allergies sochx: denies famhx: gastric cancer Present on Admission - Present on Admission Any Indicators Present on Admission: No Review of Systems - EENT Eyes: absent: Blurred Vision Nose/Mouth/Throat: Post Nasal Drip - Cardiovascular Cardiovascular: absent: Chest Pain, Diaphoresis, Dyspnea, Palpitations, Rapid Heart Rate, Syncope - Respiratory Respiratory: absent: Cough, Dyspnea - Gastrointestinal Gastrointestinal: absent: Abdominal Pain, Constipation, Diarrhea, Nausea - Genitourinary Genitourinary: absent: Dysuria, Urinary Frequency - Menstruation Menstruation: Post Menopausal - Neurological Neurological: Tingling. absent: Abnormal Gait, Abnormal Movements, Abnormal Speech, Confusion, Dizziness, Vertigo, Weakness - Psychiatric Psychiatric: Anxiety - Endocrine Endocrine: Flushing Past Patient History - Infectious Disease Hx of Infectious Diseases: None - Past Social History Smoking Status: Never Smoked - CARDIAC Hx Hypercholesterolemia: Yes - PULMONARY Hx Respiratory Disorders: Yes Other/Comment: sinus problem - NEUROLOGICAL Hx Neurological Disorder: No - HEMATOLOGICAL/ONCOLOGICAL Hx Anemia: Yes - GASTROINTESTINAL Hx Gastritis: Yes - PSYCHIATRIC Hx Substance Use: No - SURGICAL HISTORY Hx Appendectomy: Yes - ANESTHESIA Hx Anesthesia: Yes Hx Anesthesia Reactions: No Meds Allergies/Adverse Reactions: Allergies Allergy/AdvReac Type Severity Reaction Status Date / Time amoxicillin Allergy Verified 01/24/19 17:52 Physical Exam - Constitutional Appears: Non-toxic, No Acute Distress - Head Exam Head Exam: ATRAUMATIC, NORMAL INSPECTION, NORMOCEPHALIC - Eye Exam Eye Exam: EOMI, Normal appearance Pupil Exam: NORMAL ACCOMODATION, PERRL - ENT Exam ENT Exam: Mucous Membranes Moist, Normal Exam - Neck Exam Neck exam: Positive for: Normal Inspection - Respiratory Exam Respiratory Exam: Clear to Auscultation Bilateral, NORMAL BREATHING PATTERN. absent: Respiratory Distress - Cardiovascular Exam Cardiovascular Exam: REGULAR RHYTHM, +S1, +S2. absent: Tachycardia - GI/Abdominal Exam GI & Abdominal Exam: Normal Bowel Sounds, Soft - Extremities Exam Extremities exam: Positive for: normal inspection. Negative for: calf tenderness, pedal edema - Back Exam Back exam: NORMAL INSPECTION - Neurological Exam Neurological exam: Alert, Oriented x3 - Psychiatric Exam Psychiatric exam: Normal Affect, Normal Mood - Skin Skin Exam: Dry, Intact, Normal Color, Warm Results - Vital Signs Recent Vital Signs: Last Vital Signs Temp 98.6 F 01/24/19 17:49 Pulse 81 01/24/19 19:02 Resp 16 01/24/19 19:02 BP 119/83 01/24/19 19:02 Pulse Ox 95 01/24/19 19:25 - Labs Result Diagrams: 01/24/19 18:22 01/24/19 18:22 Labs: Laboratory Results - last 24 hr 01/24/19 01/24/19 01/24/19 17:54 18:15 18:22 WBC 10.6 RBC 4.73 Hgb 14.0 Hct 40.8 MCV 86.2 MCH 29.5 MCHC 34.3 RDW 13.8 Plt Count 270 MPV 8.1 Neut % (Auto) 86.6 H Lymph % (Auto) 10.3 L [place] % (Auto) 2.9 Eos % (Auto) 0.1 Baso % (Auto) 0.1 Neut # (Auto) 9.2 H Lymph # (Auto) 1.1 [place] # (Auto) 0.3 Eos # (Auto) 0.0 Baso # (Auto) 0.0 PT INR APTT Sodium Potassium Chloride Carbon Dioxide Anion Gap BUN Creatinine Est GFR ( Amer) Est GFR (Non-Af Amer) POC Glucose (mg/dL) 120 H 116 H Random Glucose Hemoglobin A1c Calcium Total Bilirubin AST ALT Alkaline Phosphatase Troponin I Total Protein Albumin Globulin Albumin/Globulin Ratio Triglycerides Cholesterol LDL Cholesterol Direct HDL Cholesterol Blood Type Antibody Screen 01/24/19 01/24/19 01/24/19 18:22 18:22 18:22 WBC RBC Hgb Hct MCV MCH MCHC RDW Plt Count MPV Neut % (Auto) Lymph % (Auto) [place] % (Auto) Eos % (Auto) Baso % (Auto) Neut # (Auto) Lymph # (Auto) [place] # (Auto) Eos # (Auto) Baso # (Auto) PT 11.1 INR 1.0 APTT 30.0 Sodium 141 Potassium 3.8 Chloride 103 Carbon Dioxide 26 Anion Gap 16 BUN 17 Creatinine 0.6 L Est GFR ( Amer) > 60 Est GFR (Non-Af Amer) > 60 POC Glucose (mg/dL) Random Glucose 106 H Hemoglobin A1c 5.8 Calcium 9.8 Total Bilirubin 0.3 AST 27 ALT 26 Alkaline Phosphatase 140 H D Troponin I < 0.0120 Total Protein 8.5 H Albumin 4.7 Globulin 3.7 Albumin/Globulin Ratio 1.3 Triglycerides 165 H D Cholesterol 212 H LDL Cholesterol Direct 123 HDL Cholesterol 45 Blood Type Antibody Screen 01/24/19 18:22 WBC RBC Hgb Hct MCV MCH MCHC RDW Plt Count MPV Neut % (Auto) Lymph % (Auto) [place] % (Auto) Eos % (Auto) Baso % (Auto) Neut # (Auto) Lymph # (Auto) [place] # (Auto) Eos # (Auto) Baso # (Auto) PT INR APTT Sodium Potassium Chloride Carbon Dioxide Anion Gap BUN Creatinine Est GFR ( Amer) Est GFR (Non-Af Amer) POC Glucose (mg/dL) Random Glucose Hemoglobin A1c Calcium Total Bilirubin AST ALT Alkaline Phosphatase Troponin I Total Protein Albumin Globulin Albumin/Globulin Ratio Triglycerides Cholesterol LDL Cholesterol Direct HDL Cholesterol Blood Type O POSITIVE Antibody Screen Negative Assessment & Plan - Assessment and Plan (Free Text) Assessment: 53 year old female admitted as code stroke Plan: Code Stroke Patient with no evidence of stroke on physical exam or on head CT NIH 0 AMA patient explained risks of leaving including unstable vitals, NE, CVA, -understands and wishes to leave AMA -will follow with PMD in morning -advised to return if symptoms recur or worsen Discussed with Dr. Thad Coronado, PGY-1 <Padmini Oneil - Last Filed: 01/25/19 05:05> History of Present Illness - History of Present Illness History of Present Illness: A/P. TIA. ANXIETY . post menopausal symptoms. pt left ama. Results - Vital Signs Recent Vital Signs: Last Vital Signs Temp 98.1 F 01/24/19 20:20 Pulse 74 01/24/19 20:20 Resp 16 01/24/19 20:20 BP 140/90 01/24/19 20:20 Pulse Ox 100 01/24/19 20:20 - Labs Result Diagrams: 01/24/19 18:22 01/24/19 18:22 Labs: Laboratory Results - last 24 hr 01/24/19 01/24/19 01/24/19 17:54 18:15 18:22 WBC 10.6 RBC 4.73 Hgb 14.0 Hct 40.8 MCV 86.2 MCH 29.5 MCHC 34.3 RDW 13.8 Plt Count 270 MPV 8.1 Neut % (Auto) 86.6 H Lymph % (Auto) 10.3 L [place] % (Auto) 2.9 Eos % (Auto) 0.1 Baso % (Auto) 0.1 Neut # (Auto) 9.2 H Lymph # (Auto) 1.1 [place] # (Auto) 0.3 Eos # (Auto) 0.0 Baso # (Auto) 0.0 PT INR APTT Sodium Potassium Chloride Carbon Dioxide Anion Gap BUN Creatinine Est GFR ( Amer) Est GFR (Non-Af Amer) POC Glucose (mg/dL) 120 H 116 H Random Glucose Hemoglobin A1c Calcium Total Bilirubin AST ALT Alkaline Phosphatase Troponin I Total Protein Albumin Globulin Albumin/Globulin Ratio Triglycerides Cholesterol LDL Cholesterol Direct HDL Cholesterol Blood Type Antibody Screen 01/24/19 01/24/19 01/24/19 18:22 18:22 18:22 WBC RBC Hgb Hct MCV MCH MCHC RDW Plt Count MPV Neut % (Auto) Lymph % (Auto) [place] % (Auto) Eos % (Auto) Baso % (Auto) Neut # (Auto) Lymph # (Auto) [place] # (Auto) Eos # (Auto) Baso # (Auto) PT 11.1 INR 1.0 APTT 30.0 Sodium 141 Potassium 3.8 Chloride 103 Carbon Dioxide 26 Anion Gap 16 BUN 17 Creatinine 0.6 L Est GFR ( Amer) > 60 Est GFR (Non-Af Amer) > 60 POC Glucose (mg/dL) Random Glucose 106 H Hemoglobin A1c 5.8 Calcium 9.8 Total Bilirubin 0.3 AST 27 ALT 26 Alkaline Phosphatase 140 H D Troponin I < 0.0120 Total Protein 8.5 H Albumin 4.7 Globulin 3.7 Albumin/Globulin Ratio 1.3 Triglycerides 165 H D Cholesterol 212 H LDL Cholesterol Direct 123 HDL Cholesterol 45 Blood Type Antibody Screen 01/24/19 18:22 WBC RBC Hgb Hct MCV MCH MCHC RDW Plt Count MPV Neut % (Auto) Lymph % (Auto) [place] % (Auto) Eos % (Auto) Baso % (Auto) Neut # (Auto) Lymph # (Auto) [place] # (Auto) Eos # (Auto) Baso # (Auto) PT INR APTT Sodium Potassium Chloride Carbon Dioxide Anion Gap BUN Creatinine Est GFR ( Amer) Est GFR (Non-Af Amer) POC Glucose (mg/dL) Random Glucose Hemoglobin A1c Calcium Total Bilirubin AST ALT Alkaline Phosphatase Troponin I Total Protein Albumin Globulin Albumin/Globulin Ratio Triglycerides Cholesterol LDL Cholesterol Direct HDL Cholesterol Blood Type O POSITIVE Antibody Screen Negative
[2019-01-24 20:30] VITALS: O2SAT 100
[2019-01-24 20:32] VITALS: BP 140/90; PULSE 74; RESP 16; TEMP 98.1
--- NOTE | 2019-01-24 21:23 | CP.PCM.DIS ---
Provider - Provider Date of Admission: 01/24/19 19:25 Attending physician: Padmini Oneil MD Consults: 01/24/19 18:12 Stroke Team Consult Stat Comment: code stroke Consulting Provider: Neurohospitalist Consulting Physician: NEUROHOCAMILA Neurohospitalist for Consult: Danilo Patiño Neurohospitalist for Consult: Remington Middleton Reason for Consult: code stroke Time Spent in preparation of Discharge (in minutes): 31 Diagnosis - Discharge Diagnosis (1) Left against medical advice Status: Acute Hospital Course - Lab Results Lab Results: Most Recent Lab Values WBC 10.6 K/uL (4.8-10.8) 01/24/19 18:22 RBC 4.73 Mil/uL (3.80-5.20) 01/24/19 18:22 Hgb 14.0 g/dL (11.0-16.0) 01/24/19 18:22 Hct 40.8 % (34.0-47.0) 01/24/19 18:22 MCV 86.2 fL (81.0-99.0) 01/24/19 18:22 MCH 29.5 pg (27.0-31.0) 01/24/19 18:22 MCHC 34.3 g/dL (33.0-37.0) 01/24/19 18:22 RDW 13.8 % (11.5-14.5) 01/24/19 18:22 Plt Count 270 K/uL (130-400) 01/24/19 18:22 MPV 8.1 fL (7.2-11.7) 01/24/19 18:22 Neut % (Auto) 86.6 % (50.0-75.0) H 01/24/19 18:22 Lymph % (Auto) 10.3 % (20.0-40.0) L 01/24/19 18:22 [place] % (Auto) 2.9 % (0.0-10.0) 01/24/19 18:22 Eos % (Auto) 0.1 % (0.0-4.0) 01/24/19 18:22 Baso % (Auto) 0.1 % (0.0-2.0) 01/24/19 18:22 Neut # (Auto) 9.2 K/uL (1.8-7.0) H 01/24/19 18:22 Lymph # (Auto) 1.1 K/uL (1.0-4.3) 01/24/19 18:22 [place] # (Auto) 0.3 K/uL (0.0-0.8) 01/24/19 18:22 Eos # (Auto) 0.0 K/uL (0.0-0.7) 01/24/19 18:22 Baso # (Auto) 0.0 K/uL (0.0-0.2) 01/24/19 18:22 PT 11.1 SECONDS (9.7-12.2) 01/24/19 18: INR 1.0 01/24/19 18:22 APTT 30.0 SECONDS (21-34) 01/24/19 18:22 Sodium 141 mmol/L (132-148) 01/24/19 18:22 Potassium 3.8 mmol/L (3.6-5.2) 01/24/19 18:22 Chloride 103 mmol/L (98-107) 01/24/19 18:22 Carbon Dioxide 26 mmol/L (22-30) 01/24/19 18:22 Anion Gap 16 (10-20) 01/24/19 18:22 BUN 17 mg/dL (7-17) 01/24/19 18:22 Creatinine 0.6 mg/dL (0.7-1.2) L 01/24/19 18:22 Est GFR ( Amer) > 60 01/24/19 18:22 Est GFR (Non-Af Amer) > 60 01/24/19 18:22 POC Glucose (mg/dL) 116 mg/dL (65-110) H 01/24/19 18:15 Random Glucose 106 mg/dL (65-105) H 01/24/19 18:22 Hemoglobin A1c 5.8 % (4.2-6.5) 01/24/19 18:22 Calcium 9.8 mg/dl (8.6-10.4) 01/24/19 18:22 Total Bilirubin 0.3 mg/dL (0.2-1.3) 01/24/19 18:22 AST 27 U/L (14-36) 01/24/19 18:22 ALT 26 U/L (9-52) 01/24/19 18:22 Alkaline Phosphatase 140 U/L (38-126) H D 01/24/19 18:22 Troponin I < 0.0120 ng/mL (0.00-0.120) 01/24/19 18:22 Total Protein 8.5 g/dL (6.3-8.3) H 01/24/19 18:22 Albumin 4.7 g/dL (3.5-5.0) 01/24/19 18:22 Globulin 3.7 gm/dL (2.2-3.9) 01/24/19 18:22 Albumin/Globulin Ratio 1.3 (1.0-2.1) 01/24/19 18:22 Triglycerides 165 mg/dL (0-149) H D 01/24/19 18:22 Cholesterol 212 mg/dL (0-199) H 01/24/19 18:22 LDL Cholesterol Direct 123 mg/dL (0-129) 01/24/19 18:22 HDL Cholesterol 45 mg/dL (30-70) 01/24/19 18:22 Blood Type O POSITIVE 01/24/19 18:22 Antibody Screen Negative 01/24/19 18:22 - Hospital Course Hospital Course: HPI on admission: Patient is a 53 year old female with pmhx of HLD and GERD who presented to ED with complaints of feeling red in her face, anxiety, and subsequent perioral numbness and tingling to left scalp and dry mouth. She reports she was sitting at work and suddenlt felt a wave of heat come over her and travel to her face. She then became anxious and experienced dry mouth and chloé-oral and left scalp tingling. Patient reports similar symptoms in the past requiring ED eval with no finding other than anxiety. She reports these episodes occurred after entering menopause 1.5 years ago. She follows with her PMD and is deciding to leave AMA to meet with him tomorrow. Currently patient feels well and denies further complaints of headache, decreased muscle strength, paresthesias, palpitations, chest pain or SOB. Benefits and risks of leaving AMA explained to patient with understanding. Discharge Exam - Head Exam Head Exam: ATRAUMATIC, NORMAL INSPECTION, NORMOCEPHALIC - Additional Findings Additional findings: refer to H & P Discharge Plan - Follow Up Plan Condition: STABLE Disposition: AGAINST MEDICAL ADVICE Additional Instructions: patient leaving AMA -explained risks of unstable vitals, MS, CVA, , understands and wishes to leave AMA -will follow with PMD in morning -instructed to return with worsening of symptoms
--- NOTE | 2019-01-25 12:22 | CT ---
Date of service: 01/24/2019 PROCEDURE: CTA HEAD AND NECK WITH CONTRAST HISTORY: left side weakness/parethesia COMPARISON: None available. TECHNIQUE: Initial noncontrast head CT was performed. Subsequently, CT angiogram of the head and neck were performed after the intravenous administration of 80 mL of Omnipaque 350. Contiguous 1.5mm thick images were obtained in the axial plane of the neck. 2-D coronal and sagittal MPR images were obtained. Imaging postprocessing was performed with 3-D images also obtained. A delayed contrast head CT was also obtained. This CT exam was performed using one or more of the following dose reduction techniques: Automated exposure control, adjustment of the mA and/or kV according to patient size, and/or use of iterative reconstruction technique. Contrast dose: 100 mL Visipaque 320 Radiation dose: Total exam DLP = 492.98 mGy-cm. FINDINGS: HEAD: Right: The intracranial internal carotid artery, and anterior and middle cerebral arteries are widely patent. A1 segment is hypoplastic, an anatomic variant. Left: The intracranial internal carotid artery, and anterior and middle cerebral arteries are widely patent. Posterior circulation: The visualized intracranial vertebral arteries, basilar artery and posterior cerebral arteries are widely patent. There is no endoluminal filling defect to suggest thrombus. There is no intracranial saccular aneurysm. NECK: There is a three vessel aortic arch. There is no stenosis at the origins of the great vessels at the level of the aortic arch. No atherosclerotic calcification or mural plaque present. Right Carotid: On the right, the common carotid, internal carotid and external carotid arteries are widely patent. There is no hemodynamically significant stenosis in the internal carotid artery by NASCET criteria. Left Carotid: On the left, the common carotid, internal carotid and external carotid arteries are widely patent. There is no hemodynamically significant stenosis in the internal carotid artery by NASCET criteria. The vertebral arteries are widely patent. The vertebral artery is hypoplastic, an anatomic variant. The visualized soft tissues of the neck are normal. The visualized brain and cervical spine are within normal limits. The lung apices are clear. Multinodular thyroid gland with asymmetric enlargement of the right thyroid lobe. IMPRESSION: 1. No evidence of endoluminal thrombus,occlusion or definite significant stenosis in the intracranial arteries. 2. No evidence of hemodynamically significant stenosis in the internal carotid arteries. 3. Patent bilateral vertebral arteries. 4. Multinodular thyroid gland with asymmetric enlargement of the right thyroid lobe. If not already performed, a dedicated thyroid ultrasound on a nonemergent basis is recommended for further evaluation of the thyroid gland. A preliminary report was provided by [email or web address]. The final report is tagged to the PA review folder. Follow-up thyroid ultrasound on a nonemergent basis.
--- NOTE | 2019-01-27 16:10 | CARD ---
APPROVED REPORT Date of service: 01/24/2019 EKG Measurement Heart [id number] <Conclusion> Normal sinus rhythm Moderate voltage criteria for LVH, may be normal variant Borderline ECG
== END 2019-01-24 21:01 | disposition left against medical advice (07) ==
LOC: C.ER 17:44 → UNDOADMIN 19:25 → C.6T 19:25 → C.9E 20:40 → C.6T 20:40
DX: R53.1 Weakness (principal); R20.2 Paresthesia of skin
CPT/HCPCS: 70450; 70496; 70498; 71045; 80053; 80061; 82948; 83036; 84484; 85025; 85610; 85730; 86850; 86900; 93005; 99285; J7030; Q9967